=== PATIENT | male | born 1990 | race Caucasian/White ===

== ENCOUNTER 2016-10-03 18:44 | Emergency (ER) | payer OTHER ==
--- NOTE | 2016-10-03 19:45 | ED NURSING NOTES ---
Clinical Report - Nurses [facility] [address] [place] [address] 10/03/2016 18:45 [id number] Triage time 18:48. Acuity: LEVEL 4. Chief Complaint: INJURY TO RIGHT HAND. INJURY TO THE RIGHT MIDDLE FINGER. 18:49 10/03/16. 18:49 10/03/16. Alert. ABEBA COMA SCORE: [place] Coma Scale: 15- eyes open spontaneously (4); best verbal response- oriented x 4 (5); best motor response- obeys commands (6). --18:54 Gautam Goldstein R.N. 18:48 10/03/16. BP: 129/67. HR: 60. RR: 20. O2 saturation: 99% on room air. Temp: 97.8 F (oral). Pain level now: 01/30. --18:54 Gautam Goldstein R.N. Weight: 86.1 kg stated. Height/Length: 71 inches Per Patient. BMI: 26.5. --18:51 Gautam Goldstein R.N. Medications None. --18:51 Gautam Goldstein R.N. Medication/allergy information source: the patient. --18:54 Gautam Goldstein R.N. Allergies None. --18:51 Gautam Goldstein R.N. History Arrived by private vehicle. 18:49 10/03/16. This occurred just prior to arrival. Occurred at work. Treatment DISHWASHER: None. PAST MEDICAL HX: Tetanus status: up-to-date. Immunizations: up-to-date. SOCIAL HX: Never smoker. Occasional alcohol use. No drug use. No infectious disease exposure. ABUSE ASSESSMENT: No report of abuse. FALL RISK ASSESSMENT: Fall risk assessment completed. No fall risk identified. NUTRITIONAL RISK ASSESSMENT: The nutritional risk assessment revealed no deficiencies. FUNCTIONAL ASSESSMENT: Functional assessment: no impairments noted. LEARNING NEEDS ASSESSMENT: The learning needs assessment revealed no barriers. SKIN INTEGRITY ASSESSMENT: Skin integrity risk assessment completed. No skin integrity risk identified. --18:54 Gautam Goldstein R.N. PROBLEMS: Spontaneous pneumothorax. --18:52 Gautam Goldstein R.N. ADDITIONAL SURGERIES: Chest Tube. Hernia Repair. --18:52 Gautam Goldstein R.N. Assessment 18:49 10/03/16. --18:54 Gautam Goldstein R.N. Interventions 18:49 10/03/16. 18:49 10/03/16. ID and allergy band on patient. To treatment room. --18:54 Gautam Goldstein R.N. PHYSICAL ASSESSMENT 18:52 10/03/16. Ambulatory to room. GENERAL / NEURO / PSYCH: Oriented X 4. Alert. Appears in pain. EXTREMITIES: Right hand: deformity (right middle finger). SKIN: Skin is warm and dry. --18:52 Gautam Goldstein R.N. NURSING PROGRESS NOTES 18:52 10/03/16. The plan of care for this patient has been created. Extremity elevated. Neuro-vascular extremity check. Reassurance given. Two patient identifiers checked. Call light placed in reach. Side rails up x 2. Bed placed in lowest position. Brakes of bed on. --18:52 Gautam Goldstein R.N. 19:18 10/03/2016 Lidocaine Injection Injectable 1 % given. Allergies verified and confirmed 5 rights. (placed on finger by CORPORATE SECRETARY). --19:33 Lucy Connolly R.N. 19:18 10/03/2016 Bupivacaine Injection Injectable 0.5 % given. Allergies verified and confirmed 5 rights. (given by CORPORATE SECRETARY Dylan for site). --19:33 Lucy Connolly R.N. 19:40 10/03/2016 Ceftriaxone IM 1 gm given. Given in the left ventral gluteus. Allergies verified and confirmed 5 rights. --19:40 Natasha Victoria R.N. Applied clean dressing consisting of antibiotic impregnated gauze. Secured with tube gauze. Finger splint applied to right middle finger. Distal pulses intact, sensation intact and motor within normal limits (4 prong finger splint secured with tube gauze.). --20:06 Zamzam Schneider 20:17 10/03/2016 Ceftriaxone IM Response: no adverse reaction. --20:27 Lucy Connolly R.N. 20:17 10/03/2016 Lidocaine Injection Response: no adverse reaction. --20:27 Lucy Connolly R.N. 20:17 10/03/2016 Bupivacaine Injection Response: no adverse reaction. --20:27 Lucy Connolly R.N. DISPOSITION / DISCHARGE Condition at departure: improved and stable. The goals identified in the patient's plan of care were met. No learning barriers present. Discharge instructions provided and reviewed with the patient. Reviewed warnings. Reviewed medication(s) side effects, precautions, dosing and course information. Reviewed wound care instructions. Reviewed referral to an orthopedic surgeon. Patient verbalized understanding. Written instructions provided in Greenlandic. The patient was discharged by the nurse practitioner. He was discharged home and accompanied by family. He left the Emergency Department ambulatory and via private vehicle. Family member driving. FALL RISK ASSESSMENT: Fall risk assessment completed. No fall risk identified. --20:20 Lucy Connolly R.N. 20:16 10/03/16. BP: 112/56. HR: 59. RR: 16. O2 saturation: 100%. Temp: 98.4 F. Pain level now: 05/02. --20:20 Lucy Connolly R.N. Departure time: 2019 PM. --20:20 Lucy Connolly R.N. ( explicit explanation given as to work duties, wound care. All concerns addressed to pt's satisfaction). --20:27 Lucy Connolly R.N. Locked/Released at 10/03/2016 20:27 by Lucy Connolly R.N.
--- NOTE | 2016-10-03 19:45 | ED CLINICAL REPORT ---
Clinical Report - Physicians/Mid Levels [facility] [address] [place] [address] 10/03/2016 18:45 Patient: SANDIP BELLO Time Seen: 18:55; initial patient contact, initial documentation, patient care assumed. Arrived- By private vehicle. Historian- patient. HISTORY OF PRESENT ILLNESS Chief Complaint: Injury to the right middle finger. The injury happened just prior to arrival. Occurred at work. The patient sustained a crush injury (got tip of finger stuck between metal and caulking gun). Patient is experiencing severe pain. Patient denies injury to the head or neck. No other injury. REVIEW OF SYSTEMS The patient sustained a laceration. He has had swelling. No tingling, numbness, weakness or foreign body. All systems otherwise negative, except as recorded above. PAST HISTORY See nurses notes. PROBLEMS: Spontaneous pneumothorax. --18:52 Gautam Goldstein R.N. ADDITIONAL SURGERIES: Chest Tube. Hernia Repair. --18:52 Gautam Goldstein R.N. The patient's dominant hand is the right. Tetanus immunization status is up-to-date. SOCIAL HISTORY Never smoker. Occasional alcohol use. No drug use. No recent travel. Is a local resident. FAMILY HISTORY No significant family medical history. ADDITIONAL NOTES The nursing notes have been reviewed with agreement regarding the chief complaint, HPI, ROS, PMH and patient medications and allergies. PHYSICAL EXAM Vital Signs: 10/03/2016 18:48 BP: 129/67. HR: 60. RR: 20. O2 saturation: 99%. Temp: 97.8 F. Pain level now: 10/10. Have been reviewed as normal and appear to be correct. Appearance: Alert. Oriented X3. No acute distress. Head: Head atraumatic. Eyes: Pupils equal, round and reactive to light. Eyes normal inspection. Respiratory: No respiratory distress. Skin: Skin warm and dry. Skin intact. Extremities: Hand injury present. Tip of right middle finger: moderate tenderness, mild swelling and subcutaneous 1.0 cm laceration; large subungual hematoma present. SEE LACERATION PROCEDURE NOTE #1. No erythema, puncture wound or foreign body. No nail avulsion, exposed bone or loss of the nail bed on the right middle finger or tip amputation of the right middle finger. No wrist injury. Hand and wrist exam otherwise negative. Extremities otherwise negative. Neuro, Vascular and Tendons: Vascular status intact. Sensation intact. Motor intact. Tendon function intact. Neuro: Oriented X 3. No motor deficit. No sensory deficit. Note: isolated injury to finger. LABS, X-RAYS, AND EKG X-Rays: Right digit(s). Rt UE Digits X-ray: Digit fracture of the right upper extremity. Fracture of the distal phalanx, middle finger. (transverse fx). No open, comminuted, intraarticular or angulated fracture of the right middle finger. The X-rays were independently viewed by me. PROGRESS AND PROCEDURES Laceration Repair: Location: right middle finger. Length: 1 cm. Complexity: simple (local anesthesia used). Wound depth/shape- linear and involving fascia. Wound is clean. No contamination or foreign body present. Contused tissue present. No tissue loss. Distal neuro/vascular/tendon status normal. Tendon not examined. No tendon deficit or laceration or tendon injury. Anesthesia provided by digital block using 1% lidocaine and 0.50% Marcaine (2 mL). Prepped with Betadine. Wound explored, cleansed, irrigated and examined to the base in bloodless field with normal saline. Wound not debrided. No foreign material removed. Closure of skin: interrupted 4-0 nylon (2 sutures). Post-procedure: he is stable and there are no complications. Bleeding is controlled and neuro-vascular status is intact distal to the wound. Clean dressing applied. (per nurse, see other notes). Tetanus immunization up-to-date. Estimated blood loss: 1 mL. Course of Care: 19:58 10/03/16. L&I paperwork completed. Patient and family counseled in person regarding the patient's stable condition, test results and diagnosis. Differential Diagnosis: Other possible considerations: crush injury, lac, fx, subungual hematoma. Above considerations are based on history, physical exam, reassessment and X-Ray data. Differential diagnosis was discussed with patient and patient's family. Disposition: Discharged home in good and improved condition (19:45). Condition: good and stable. CLINICAL IMPRESSION Crush injury to the right middle finger. Open nondisplaced distal phalanx fracture of the right middle finger. No angulated fracture of the phalanx. Single deep laceration to the right middle finger.Treatment of laceration not delayed. No infection or foreign body present. Subungual hematoma of the right third toe. No damage to the nail, foreign body present or laceration present. INSTRUCTIONS Apply ice for 20 minutes four times a day for two days until better. Don't apply ice directly to skin. Elevate affected areas above chest level for two days until better. Wear aluminum splint until released. Protect wound and keep wound area clean. Soak in warm soapy water twice daily. Apply neosporin twice daily. Sutures should be removed in ten days. Limit use of your right hand until better (limited use of Right hand until cleared by orthopedic or follow up physician). Do not work today, tomorrow. Warnings: GENERAL WARNINGS: Return or contact your physician immediately if your condition worsens or changes unexpectedly, if not improving as expected, or if other problems arise. Specifically return if problem worsens. Prescription Medications: Zofran 4 mg: Take 1 orally every six hours as needed for nausea/vomiting. Dispense ten (10). No refills. Substitution is permissible. Cephalexin 500 mg: take 1 capsule orally every 8 hours for 10 days. No refill. [place] 5 mg / 325 mg tablets: take 1 to 2 orally every 6 hours as needed for pain. Dispense fifteen (15). No refills. Substitution is permissible. Motrin 800 mg tablets: take 1 tablet orally every 8 hours as needed for pain. Dispense thirty (30). No refills. Substitution is permissible. Follow-up: Follow up with your doctor in about three days even if well and for wound check. Call for an appointment. Summary of care provided to patient. Understanding of the discharge instructions verbalized by patient. Follow-up with: [facility], , [address] [place], [address]; Peng Castillo M.D., [place], , [address] , [place], [address]; Guicho Polo M.D., [place], , [address], , [place], [address]; Tripp Nunez MD, Orthopedic Surgeon, , [address], , [place], [address]; Kamron Cordoba MD, Orthopedic Surgeon, , [address] , [place], [address] Follow up in about three days even if well. Call for an appointment. Summary of care provided to patient. (Electronically signed by Destinee Galicia A.R.N.P. 10/03/2016 21:37)
--- NOTE | 2016-10-03 19:45 | ED NURSING NOTES ---
Clinical Report - Nurses [facility] [address] [place] [address] 10/03/2016 18:45 [id number] Triage time 18:48. Acuity: LEVEL 4. Chief Complaint: INJURY TO RIGHT HAND. INJURY TO THE RIGHT MIDDLE FINGER. 18:49 10/03/16. 18:49 10/03/16. Alert. ABEBA COMA SCORE: [place] Coma Scale: 15- eyes open spontaneously (4); best verbal response- oriented x 4 (5); best motor response- obeys commands (6). --18:54 Gautam Goldstein R.N. 18:48 10/03/16. BP: 129/67. HR: 60. RR: 20. O2 saturation: 99% on room air. Temp: 97.8 F (oral). Pain level now: 01/30. --18:54 Gautam Goldstein R.N. Weight: 86.1 kg stated. Height/Length: 71 inches Per Patient. BMI: 26.5. --18:51 Gautam Goldstein R.N. Medications None. --18:51 Gautam Goldstein R.N. Medication/allergy information source: the patient. --18:54 Gautam Goldstein R.N. Allergies None. --18:51 Gautam Goldstein R.N. History Arrived by private vehicle. 18:49 10/03/16. This occurred just prior to arrival. Occurred at work. Treatment DOCTOR OF NURSE ANESTHESIA PRACTICE: None. PAST MEDICAL HX: Tetanus status: up-to-date. Immunizations: up-to-date. SOCIAL HX: Never smoker. Occasional alcohol use. No drug use. No infectious disease exposure. ABUSE ASSESSMENT: No report of abuse. FALL RISK ASSESSMENT: Fall risk assessment completed. No fall risk identified. NUTRITIONAL RISK ASSESSMENT: The nutritional risk assessment revealed no deficiencies. FUNCTIONAL ASSESSMENT: Functional assessment: no impairments noted. LEARNING NEEDS ASSESSMENT: The learning needs assessment revealed no barriers. SKIN INTEGRITY ASSESSMENT: Skin integrity risk assessment completed. No skin integrity risk identified. --18:54 Gautam Goldstein R.N. PROBLEMS: Spontaneous pneumothorax. --18:52 Gautam Goldstein R.N. ADDITIONAL SURGERIES: Chest Tube. Hernia Repair. --18:52 Gautam Goldstein R.N. Assessment 18:49 10/03/16. --18:54 Gautam Goldstein R.N. Interventions 18:49 10/03/16. 18:49 10/03/16. ID and allergy band on patient. To treatment room. --18:54 Gautam Goldstein R.N. PHYSICAL ASSESSMENT 18:52 10/03/16. Ambulatory to room. GENERAL / NEURO / PSYCH: Oriented X 4. Alert. Appears in pain. EXTREMITIES: Right hand: deformity (right middle finger). SKIN: Skin is warm and dry. --18:52 Gautam Goldstein R.N. NURSING PROGRESS NOTES 18:52 10/03/16. The plan of care for this patient has been created. Extremity elevated. Neuro-vascular extremity check. Reassurance given. Two patient identifiers checked. Call light placed in reach. Side rails up x 2. Bed placed in lowest position. Brakes of bed on. --18:52 Gautam Goldstein R.N. 19:18 10/03/2016 Lidocaine Injection Injectable 1 % given. Allergies verified and confirmed 5 rights. (placed on finger by LIBRARY SALES CONSULTANT). --19:33 Lucy Connolly R.N. 19:18 10/03/2016 Bupivacaine Injection Injectable 0.5 % given. Allergies verified and confirmed 5 rights. (given by LIBRARY SALES CONSULTANT Dylan for site). --19:33 Lucy Connolly R.N. 19:40 10/03/2016 Ceftriaxone IM 1 gm given. Given in the left ventral gluteus. Allergies verified and confirmed 5 rights. --19:40 Natasha Victoria R.N. Applied clean dressing consisting of antibiotic impregnated gauze. Secured with tube gauze. Finger splint applied to right middle finger. Distal pulses intact, sensation intact and motor within normal limits (4 prong finger splint secured with tube gauze.). --20:06 Zamzam Schneider 20:17 10/03/2016 Ceftriaxone IM Response: no adverse reaction. --20:27 Lucy Connolly R.N. 20:17 10/03/2016 Lidocaine Injection Response: no adverse reaction. --20:27 Lucy Connolly R.N. 20:17 10/03/2016 Bupivacaine Injection Response: no adverse reaction. --20:27 Lucy Connolly R.N. DISPOSITION / DISCHARGE Condition at departure: improved and stable. The goals identified in the patient's plan of care were met. No learning barriers present. Discharge instructions provided and reviewed with the patient. Reviewed warnings. Reviewed medication(s) side effects, precautions, dosing and course information. Reviewed wound care instructions. Reviewed referral to an orthopedic surgeon. Patient verbalized understanding. Written instructions provided in Spanish. The patient was discharged by the nurse practitioner. He was discharged home and accompanied by family. He left the Emergency Department ambulatory and via private vehicle. Family member driving. FALL RISK ASSESSMENT: Fall risk assessment completed. No fall risk identified. --20:20 Lucy Connolly R.N. 20:16 10/03/16. BP: 112/56. HR: 59. RR: 16. O2 saturation: 100%. Temp: 98.4 F. Pain level now: 05/02. --20:20 Lucy Connolly R.N. Departure time: 2019 PM. --20:20 Lucy Connolly R.N. ( explicit explanation given as to work duties, wound care. All concerns addressed to pt's satisfaction). --20:27 Lucy Connolly R.N. Locked/Released at 10/03/2016 20:27 by Lucy Connolly R.N.
--- NOTE | 2016-10-03 19:45 | ED ORDER SUMMARY ---
..... Patient: SANDIP BELLO OrderSheet [facility] VisitID: [id number] [address] [place] [address] 25y, M Registration Date/Time: 10/03/2016 ORDER SHEET Weight: 86.1 kg (stated) Allergies: None GENERAL ORDERS: Hand 2V Right Urgent (18:48 10/03/2016 JBoardley R.N. per protocol) (Cancelled: Other18:52 JBoardley R.N.) (Ack 18:53 LNations ER Tech1) Hand 3 or 4V Right Urgent (18:53 10/03/2016 JBoardley R.N. per protocol) (Ack 18:53 LNations ER Tech1) (19:32 EHassan R.N.) Splint (Finger) (Right) (Middle) (4 prong ) (19:21 10/03/2016 HBivens A.R.N.P.) (19:46 EHassan R.N.) Suture Set-up: (19:21 10/03/2016 HBivens A.R.N.P.) (19:32 EHassan R.N.) Dress Wounds (19:21 10/03/2016 HBivens A.R.N.P.) (19:46 EHassan R.N.) MEDICATION ORDERS: Ceftriaxone IM 1 gm (NOW) (19:20 10/03/2016 HBivens A.R.N.P.) (Ack 19:26 JSanders R.N.) (19:40 JSanders R.N.) Bupivacaine Injection 0.5 % (soln) (NOW) (19:20 10/03/2016 HBivens A.R.N.P.) (Ack 19:26 JSanders R.N.) (19:33 EHassan R.N.) Lidocaine Injection 1% plain (NOW) (19:20 10/03/2016 HBivens A.R.N.P.) (Ack 19:26 JSanders R.N.) (19:33 EHassan R.N.) IV FLUIDS: ORDER SHEET NOTES: [Electronically signed by Lucy Connolly R.N. (10/03/2016)] [Electronically signed by Destinee Galicia (:37 10/03/2016)] [Electronically locked/signed by Lucy Connolly R.N. (10/03/2016)]
--- NOTE | 2016-10-03 19:45 | ED ORDER SUMMARY ---
..... Patient: SANDIP BELLO OrderSheet [facility] VisitID: [id number] [address] [place] [address] 25y, M Registration Date/Time: 10/03/2016 ORDER SHEET Weight: 86.1 kg (stated) Allergies: None GENERAL ORDERS: Hand 2V Right Urgent (18:48 10/03/2016 JBoardley R.N. per protocol) (Cancelled: Other18:52 JBoardley R.N.) (Ack 18:53 LNations ER Tech1) Hand 3 or 4V Right Urgent (18:53 10/03/2016 JBoardley R.N. per protocol) (Ack 18:53 LNations ER Tech1) (19:32 EHassan R.N.) Splint (Finger) (Right) (Middle) (4 prong ) (19:21 10/03/2016 HBivens A.R.N.P.) (19:46 EHassan R.N.) Suture Set-up: (19:21 10/03/2016 HBivens A.R.N.P.) (19:32 EHassan R.N.) Dress Wounds (19:21 10/03/2016 HBivens A.R.N.P.) (19:46 EHassan R.N.) MEDICATION ORDERS: Ceftriaxone IM 1 gm (NOW) (19:20 10/03/2016 HBivens A.R.N.P.) (Ack 19:26 JSanders R.N.) (19:40 JSanders R.N.) Bupivacaine Injection 0.5 % (soln) (NOW) (19:20 10/03/2016 HBivens A.R.N.P.) (Ack 19:26 JSanders R.N.) (19:33 EHassan R.N.) Lidocaine Injection 1% plain (NOW) (19:20 10/03/2016 HBivens A.R.N.P.) (Ack 19:26 JSanders R.N.) (19:33 EHassan R.N.) IV FLUIDS: ORDER SHEET NOTES: [Electronically signed by Lucy Connolly R.N. (10/03/2016)] [Electronically signed by Destinee Galicia (:37 10/03/2016)] [Electronically locked/signed by Lucy Connolly R.N. (10/03/2016)]
--- NOTE | 2016-10-03 19:45 | ED CLINICAL REPORT ---
Clinical Report - Physicians/Mid Levels [facility] [address] [place] [address] 10/03/2016 18:45 Patient: SANDIP BELLO Time Seen: 18:55; initial patient contact, initial documentation, patient care assumed. Arrived- By private vehicle. Historian- patient. HISTORY OF PRESENT ILLNESS Chief Complaint: Injury to the right middle finger. The injury happened just prior to arrival. Occurred at work. The patient sustained a crush injury (got tip of finger stuck between metal and caulking gun). Patient is experiencing severe pain. Patient denies injury to the head or neck. No other injury. REVIEW OF SYSTEMS The patient sustained a laceration. He has had swelling. No tingling, numbness, weakness or foreign body. All systems otherwise negative, except as recorded above. PAST HISTORY See nurses notes. PROBLEMS: Spontaneous pneumothorax. --18:52 Gautam Goldstein R.N. ADDITIONAL SURGERIES: Chest Tube. Hernia Repair. --18:52 Gautam Goldstein R.N. The patient's dominant hand is the right. Tetanus immunization status is up-to-date. SOCIAL HISTORY Never smoker. Occasional alcohol use. No drug use. No recent travel. Is a local resident. FAMILY HISTORY No significant family medical history. ADDITIONAL NOTES The nursing notes have been reviewed with agreement regarding the chief complaint, HPI, ROS, PMH and patient medications and allergies. PHYSICAL EXAM Vital Signs: 10/03/2016 18:48 BP: 129/67. HR: 60. RR: 20. O2 saturation: 99%. Temp: 97.8 F. Pain level now: 10/10. Have been reviewed as normal and appear to be correct. Appearance: Alert. Oriented X3. No acute distress. Head: Head atraumatic. Eyes: Pupils equal, round and reactive to light. Eyes normal inspection. Respiratory: No respiratory distress. Skin: Skin warm and dry. Skin intact. Extremities: Hand injury present. Tip of right middle finger: moderate tenderness, mild swelling and subcutaneous 1.0 cm laceration; large subungual hematoma present. SEE LACERATION PROCEDURE NOTE #1. No erythema, puncture wound or foreign body. No nail avulsion, exposed bone or loss of the nail bed on the right middle finger or tip amputation of the right middle finger. No wrist injury. Hand and wrist exam otherwise negative. Extremities otherwise negative. Neuro, Vascular and Tendons: Vascular status intact. Sensation intact. Motor intact. Tendon function intact. Neuro: Oriented X 3. No motor deficit. No sensory deficit. Note: isolated injury to finger. LABS, X-RAYS, AND EKG X-Rays: Right digit(s). Rt UE Digits X-ray: Digit fracture of the right upper extremity. Fracture of the distal phalanx, middle finger. (transverse fx). No open, comminuted, intraarticular or angulated fracture of the right middle finger. The X-rays were independently viewed by me. PROGRESS AND PROCEDURES Laceration Repair: Location: right middle finger. Length: 1 cm. Complexity: simple (local anesthesia used). Wound depth/shape- linear and involving fascia. Wound is clean. No contamination or foreign body present. Contused tissue present. No tissue loss. Distal neuro/vascular/tendon status normal. Tendon not examined. No tendon deficit or laceration or tendon injury. Anesthesia provided by digital block using 1% lidocaine and 0.50% Marcaine (2 mL). Prepped with Betadine. Wound explored, cleansed, irrigated and examined to the base in bloodless field with normal saline. Wound not debrided. No foreign material removed. Closure of skin: interrupted 4-0 nylon (2 sutures). Post-procedure: he is stable and there are no complications. Bleeding is controlled and neuro-vascular status is intact distal to the wound. Clean dressing applied. (per nurse, see other notes). Tetanus immunization up-to-date. Estimated blood loss: 1 mL. Course of Care: 19:58 10/03/16. L&I paperwork completed. Patient and family counseled in person regarding the patient's stable condition, test results and diagnosis. Differential Diagnosis: Other possible considerations: crush injury, lac, fx, subungual hematoma. Above considerations are based on history, physical exam, reassessment and X-Ray data. Differential diagnosis was discussed with patient and patient's family. Disposition: Discharged home in good and improved condition (19:45). Condition: good and stable. CLINICAL IMPRESSION Crush injury to the right middle finger. Open nondisplaced distal phalanx fracture of the right middle finger. No angulated fracture of the phalanx. Single deep laceration to the right middle finger.Treatment of laceration not delayed. No infection or foreign body present. Subungual hematoma of the right third toe. No damage to the nail, foreign body present or laceration present. INSTRUCTIONS Apply ice for 20 minutes four times a day for two days until better. Don't apply ice directly to skin. Elevate affected areas above chest level for two days until better. Wear aluminum splint until released. Protect wound and keep wound area clean. Soak in warm soapy water twice daily. Apply neosporin twice daily. Sutures should be removed in ten days. Limit use of your right hand until better (limited use of Right hand until cleared by orthopedic or follow up physician). Do not work today, tomorrow. Warnings: GENERAL WARNINGS: Return or contact your physician immediately if your condition worsens or changes unexpectedly, if not improving as expected, or if other problems arise. Specifically return if problem worsens. Prescription Medications: Zofran 4 mg: Take 1 orally every six hours as needed for nausea/vomiting. Dispense ten (10). No refills. Substitution is permissible. Cephalexin 500 mg: take 1 capsule orally every 8 hours for 10 days. No refill. [place] 5 mg / 325 mg tablets: take 1 to 2 orally every 6 hours as needed for pain. Dispense fifteen (15). No refills. Substitution is permissible. Motrin 800 mg tablets: take 1 tablet orally every 8 hours as needed for pain. Dispense thirty (30). No refills. Substitution is permissible. Follow-up: Follow up with your doctor in about three days even if well and for wound check. Call for an appointment. Summary of care provided to patient. Understanding of the discharge instructions verbalized by patient. Follow-up with: [facility], , [address] [place], [address]; Peng Castillo M.D., [place], , [address] , [place], [address]; Guicho Polo M.D., [place], , [address], , [place], [address]; Tripp Nunez MD, Orthopedic Surgeon, , [address], , [place], [address]; Kamron Cordoba MD, Orthopedic Surgeon, , [address] , [place], [address] Follow up in about three days even if well. Call for an appointment. Summary of care provided to patient. (Electronically signed by Destinee Galicia A.R.N.P. 10/03/2016 21:37)
--- NOTE | 2016-10-03 20:19 | DIAGNOSTIC IMAGING REPORT ---
PROCEDURE: XR HAND 3 OR 4 VIEWS - RIGHT INDICATION: TRAUMA/INJURY TECHNIQUE: Four views of the right hand. COMPARISON: None. FINDINGS: Normal mineralization. Minimally comminuted, minimally displaced transverse fracture across the distal phalanx just proximal to the tuft. Moderate soft tissue swelling. No radiodense foreign body. No dislocation or other fractures. IMPRESSION: 1. Third distal phalanx fracture. 2. No underlying foreign body. 3. If there is nailbed disruption, treat as open fracture.
--- NOTE | 2016-10-03 21:38 | ED MED RECONCILIATION SUMMARY ---
Patient: SANDIP BELLO Medication Reconciliation Report [facility] VisitID: [id number] [address] [place] [address] 25y, M Registration Date/Time: 10/03/2016 Weight: 86.1 kg Height/Length: 71 in. BMI: 26.5 ALLERGIES: None The patient's Home Medications are listed below: NONE. The source(s) of the original Home Medication information: patient The following Medications were given to the patient in the Emergency Department: Lidocaine [Injection] Injection 1 %, administered: 10/03/2016 7:18:00 PM Bupivacaine [Injection] Injection 0.5 %, administered: 10/03/2016 7:18:00 PM Ceftriaxone [IM] IM 1 gm, administered: 10/03/2016 7:40:00 PM The following Medications were prescribed to the patient: Zofran 4 mg: Take 1 orally every six hours as needed for nausea/vomiting. Dispense ten (10). No refills. Substitution is permissible. -- Destinee Galicia, A.R.N.P. Cephalexin 500 mg: take 1 capsule orally every 8 hours for 10 days. No refill. -- Destinee Galicia, A.R.N.P. [place] 5 mg / 325 mg tablets: take 1 to 2 orally every 6 hours as needed for pain. Dispense fifteen (15). No refills. Substitution is permissible. -- Destinee Galicia, A.R.N.P. Motrin 800 mg tablets: take 1 tablet orally every 8 hours as needed for pain. Dispense thirty (30). No refills. Substitution is permissible. -- Destinee Galicia, A.R.N.P.
--- NOTE | 2016-10-03 21:38 | ED MAR SUMMARY ---
..... Medication Administration Record [facility] [address] [place] [address] Patient: SANDIP BELLO Visit ID: [id number] 25y, M Weight: 86.1 kg Height/Length: 71 in BMI: 26.5 ALLERGIES: None Given 19:18 10/03/2016 Lucy Connolly RMarekNMarek Medication Administered: BUPIVACAINE [INJECTION], Dose: 0.5 % Injectable Injection. Medication Ordered: Bupivacaine Injection 0.5 % (soln) (NOW). Given 19:18 10/03/2016 Lucy Connolly RMarekNMarek Medication Administered: LIDOCAINE [INJECTION], Dose: 1 % Injectable Injection. Medication Ordered: Lidocaine Injection 1% plain (NOW). Given 19:40 10/03/2016 Natasha Victoria R.N. Medication Administered: CEFTRIAXONE [IM], Dose: 1 gm IM. Medication Ordered: Ceftriaxone IM 1 gm (NOW).
--- NOTE | 2016-10-03 21:38 | ED MAR SUMMARY ---
..... Medication Administration Record [facility] [address] [place] [address] Patient: SANDIP BELLO Visit ID: [id number] 25y, M Weight: 86.1 kg Height/Length: 71 in BMI: 26.5 ALLERGIES: None Given 19:18 10/03/2016 Lucy Connolly RMarekNMarek Medication Administered: BUPIVACAINE [INJECTION], Dose: 0.5 % Injectable Injection. Medication Ordered: Bupivacaine Injection 0.5 % (soln) (NOW). Given 19:18 10/03/2016 Lucy Connolly RMarekNMarek Medication Administered: LIDOCAINE [INJECTION], Dose: 1 % Injectable Injection. Medication Ordered: Lidocaine Injection 1% plain (NOW). Given 19:40 10/03/2016 Natasha Victoria R.N. Medication Administered: CEFTRIAXONE [IM], Dose: 1 gm IM. Medication Ordered: Ceftriaxone IM 1 gm (NOW).
--- NOTE | 2016-10-03 21:38 | ED MED RECONCILIATION SUMMARY ---
Patient: SANDIP BELLO Medication Reconciliation Report [facility] VisitID: [id number] [address] [place] [address] 25y, M Registration Date/Time: 10/03/2016 Weight: 86.1 kg Height/Length: 71 in. BMI: 26.5 ALLERGIES: None The patient's Home Medications are listed below: NONE. The source(s) of the original Home Medication information: patient The following Medications were given to the patient in the Emergency Department: Lidocaine [Injection] Injection 1 %, administered: 10/03/2016 7:18:00 PM Bupivacaine [Injection] Injection 0.5 %, administered: 10/03/2016 7:18:00 PM Ceftriaxone [IM] IM 1 gm, administered: 10/03/2016 7:40:00 PM The following Medications were prescribed to the patient: Zofran 4 mg: Take 1 orally every six hours as needed for nausea/vomiting. Dispense ten (10). No refills. Substitution is permissible. -- Destinee Galicia, A.R.N.P. Cephalexin 500 mg: take 1 capsule orally every 8 hours for 10 days. No refill. -- Destinee Galicia, A.R.N.P. [place] 5 mg / 325 mg tablets: take 1 to 2 orally every 6 hours as needed for pain. Dispense fifteen (15). No refills. Substitution is permissible. -- Destinee Galicia, A.R.N.P. Motrin 800 mg tablets: take 1 tablet orally every 8 hours as needed for pain. Dispense thirty (30). No refills. Substitution is permissible. -- Destinee Galicia, A.R.N.P.
--- NOTE | 2016-10-03 21:38 | ED DISCHARGE INSTRUCTIONS ---
Patient: SANDIP BELLO General Instructions [facility] VisitID: [id number] [address] [place] [address] 25y, M Registration Date/Time: 10/03/2016 Crush injury to the right middle finger. Open nondisplaced distal phalanx fracture of the right middle finger. No angulated fracture of the phalanx. Single deep laceration to the right middle finger.Treatment of laceration not delayed. No infection or foreign body present. Subungual hematoma of the right third toe. No damage to the nail, foreign body present or laceration present. INSTRUCTIONS Apply ice for 20 minutes four times a day for two days until better. Don't apply ice directly to skin. Elevate affected areas above chest level for two days until better. Wear aluminum splint until released. Protect wound and keep wound area clean. Soak in warm soapy water twice daily. Apply neosporin twice daily. Sutures should be removed in ten days. Limit use of your right hand until better (limited use of Right hand until cleared by orthopedic or follow up physician). Do not work today, tomorrow. Warnings: GENERAL WARNINGS: Return or contact your physician immediately if your condition worsens or changes unexpectedly, if not improving as expected, or if other problems arise. Specifically return if problem worsens. Prescription Medications: Zofran 4 mg: Take 1 orally every six hours as needed for nausea/vomiting. Dispense ten (10). No refills. Substitution is permissible. Cephalexin 500 mg: take 1 capsule orally every 8 hours for 10 days. No refill. [place] 5 mg / 325 mg tablets: take 1 to 2 orally every 6 hours as needed for pain. Dispense fifteen (15). No refills. Substitution is permissible. Motrin 800 mg tablets: take 1 tablet orally every 8 hours as needed for pain. Dispense thirty (30). No refills. Substitution is permissible. Follow-up: Follow up with your doctor in about three days even if well and for wound check. Call for an appointment. Summary of care provided to patient. Understanding of the discharge instructions verbalized by patient. Follow-up with: [facility], , [address], [place], [address]; Peng Castillo M.D., Ortho, , [address], , [place], [address]; Guicho Polo M.D., Ortho, , [address], , [place], [address]; Tripp Nunez MD, Orthopedic Surgeon, , [id number], , [place], [address]; Kamron Cordoba MD, Orthopedic Surgeon, , [address] , [place], [address] Follow up in about three days even if well. Call for an appointment. Summary of care provided to patient. ADDITIONAL INFORMATION Laceration (All Closures) Alaceration is a cut through the skin. This will usually require stitches (sutures) or samson if it is deep. Minor cuts may be treated with a surgical tape closure orskin glue. Home care The following guidelines will help you care for your laceration at home: Extremity, face, or trunk wounds Keep the wound clean and dry. If a bandage was applied and it becomes wet or dirty, replace it. Otherwise, leave it in place for the first 24 hours. If stitches or samson were used, clean the wound daily. After removing the bandage, wash the area with soap and water. Use a wet cotton swab to loosen and remove any blood or crust that forms. The doctor may prescribe an antibiotic cream or ointment to prevent infection. Do not stop taking this medication until you have finished the prescribed course or the doctor tells you to stop. The doctor may also prescribe medications for pain. Follow the doctors instructions for taking these medications. You may remove the bandage to shower as usual after the first 24 hours, but do not soak the area in water (no swimming) until the stitches or samson are removed. If surgical tape was used, keep the area clean and dry. If it becomes wet, blot it dry with a towel. If skin glue was used, do not scratch, rub, or pick at the adhesive film. Do not place tape directly over the film. Do not apply liquid, ointment, or creams to the wound while the film is in place. Do not clean the wound with peroxide and do not apply ointments. Avoid activities that cause heavy sweating until the film has fallen off. Protect the wound from prolonged exposure to sunlight or tanning lamps. You may shower as usual but do not soak the wound in water (no baths or swimming). The film will fall off by itself in 510 days. Scalp wounds During the first two days, you may carefully rinse your hair in the shower to remove blood, glass or dirt particles. After two days, you may shower and shampoo your hair normally. Do not soak your scalp in the tub or go swimming until the stitches or samson have been removed. Talk with your doctor before applying any antibiotic ointment to the wound. Mouth wounds Eat soft foods to reduce pain. If the cut is inside of your mouth, clean by rinsing after each meal and at bedtime with a mixture of equal parts water and hydrogen peroxide (do not swallow!). Or, you can use a cotton swab to directly apply hydrogen peroxide onto the cut. Mouth wounds can be painful when eating. You may use an [id number] local numbing solution for pain relief. If this is not available, you may use any numbing solution for teething babies. You may apply this directly to the sores with a cotton-tip swab or with your finger. Follow-up care Follow up with your health care provider. Most skin wounds heal within ten days. Mouth and facial wounds heal within five days. However, even with proper treatment, a wound infection may sometimes occur. Therefore, you should check the wound daily for signs of infection listed below. Stitches should be removed from the face within five days; stitches and samson should be removed from other parts of the body within 714 days. If dissolving stitches were used in the mouth, these will fall out or dissolve without the need for removal. If tape closures were used, remove them yourself if they have not fallen off after 7 days. Ifskin glue was used, the film will fall off by itself in 510 days. When to seek medical care Get prompt medical attention if any of these occur: Bleeding not controlled by direct pressure Signs of infection, including increasing pain in the wound, increasing wound redness or swelling, or pus coming from the wound Fever of 100.4F (38C) or higher, or as directed by your health care provider Stitches or samson come apart or fall out or surgical tape falls off before 7 days Wound edges re-open Laceration, Extremity (Sutures, [place], Or Tape) A laceration is a cut through the skin. This will usually require stitches (sutures) or samson if it is deep. Minor cuts may be treated with surgical tape closures. Home care The following guidelines will help you care for your laceration at home: Keep the wound clean and dry. If a bandage was applied and it becomes wet or dirty, replace it. Otherwise, leave it in place for the first 24 hours, then change it once a day or as directed. If stitches or samson were used, clean the wound daily: After removing the bandage, wash the area with soap and water. Use a wet cotton swab to loosen and remove any blood or crust that forms. After cleaning, keep the wound clean and dry. Talk with your doctor before applying any antibiotic ointment to the wound. Reapply the bandage. You may remove the bandage to shower as usual after the first 24 hours, but do not soak the area in water (no swimming) until the stitches or samson are removed. If surgical tape closures were used, keep the area clean and dry. If it becomes wet, blot it dry with a towel. The doctor may prescribe an antibiotic cream or ointment to prevent infection. Do not stop taking this medication until you have finished the prescribed course or the doctor tells you to stop. The doctor may also prescribe medications for pain. Follow the doctors instructions for taking these medications. If you have chronic liver or kidney disease or ever had a stomach ulcer or GI bleeding, talk with your doctor before using these medicines. Follow-up care Follow up with your health care provider. Most skin wounds heal within ten days. However, an infection may sometimes occur despite proper treatment. Therefore, check the wound daily for the signs of infection listed below. Stitches and samson should be removed within 714 days. If surgical tape closures were used, you may remove them after 10 days, if they have not fallen off by then. Notify your doctor if you notice persistent numbness or weakness in the injured extremity. (Note:A radiologist will review any X-rays that were taken. We will notify you of any new findings that may affect your care.) When to seek medical care Get prompt medical attention if any of these occur: Increasing pain in the wound Redness, swelling, or pus coming from the wound Fever of 100.4F (38C) or higher, or as directed by your health care provider If stitches or samson come apart or fall out before your next appointment If the surgical tape closures fall off within seven days, or the wound edges re-open Bleeding not controlled by direct pressure Crush Injury: Hand [No Fx] You have a CRUSH INJURY of your HAND. This causes local pain, swelling and sometimes bruising. There are no broken bones. This injury may take from a few days to a few weeks to heal. If the FINGERNAIL has been severely injured, it may fall off in 1-2 weeks. A new one will usually start to grow back within a month. Home Care: Keep your hand elevated to reduce pain and swelling. When sitting or lying down elevate your arm above the level of your heart. You can do this by placing your arm on a pillow that rests on your chest or on a pillow at your side. This is most important during the first 48 hours after injury. Apply an ice pack (ice cubes in a plastic bag, wrapped in a towel) over the injured area for 20 minutes every 1-2 hours the first day for pain relief. Continue this 3-4 times a day until the pain and swelling goes away. You may use acetaminophen (Tylenol) or ibuprofen (Motrin, Advil) to control pain, unless another pain medicine was prescribed. [ NOTE : If you have chronic liver or kidney disease or ever had a stomach ulcer or GI bleeding, talk with your doctor before using these medicines.] Keep the splint/cast dry at all times. Bathe with your splint/cast well out of the water, protected with a large plastic bag, rubber-banded at the top end. If a fiberglass cast or splint gets wet, you can dry it with a hair-dryer. Follow Up with your doctor as advised if you are not starting to improve within the next THREE days. [NOTE: If X-rays were taken, they will be reviewed by a radiologist. You will be notified of any new findings that may affect your care.] Get Prompt Medical Attention if any of the following occur: The plaster cast or splint becomes wet or soft The fiberglass cast or splint remains wet for more than 24 hours Increased tightness or pain under the cast or splint Fingers become swollen, cold, blue, numb or tingly Redness, warmth, swelling, drainage from the wound, or foul odor from a cast or splint Fever of 100.4F(38C) or higher, or as directed by your healthcare provider Fracture:Finger [Open] You have a fracture of your finger (broken finger) with a nearby cut, puncture or deep scrape. This causes local pain, swelling and bruising. Because of the open injury, there is a risk of infection in the skin and bone. Antibiotics will be used to lower the risk of infection. This injury takes about four weeks to heal. Finger injuries are often treated with a splint, cast or by taping the injured finger to the next one ("lora taping"). This protects the injured finger and holds the bone in position while it heals. More serious fractures may require surgery. If the FINGERNAIL has been severely injured, it will probably fall off in 1-2 weeks. A new fingernail will usually start to grow back within a month. Home Care: Keep your hand elevated to reduce pain and swelling. When sitting or lying down elevate your arm above the level of your heart. You can do this by placing your arm on a pillow that rests on your chest or on a pillow at your side. This is most important during the first 48 hours after injury. Apply an ice pack (ice cubes in a plastic bag, wrapped in a towel) over the injured area for 20 minutes every 1-2 hours the first day for pain relief. Continue this 3-4 times a day until the pain and swelling goes away. Keep the cast/splint completely dry at all times. Bathe with your cast/splint out of the water, protected with a large plastic bag, rubber-banded at the top end. If a fiberglass cast/splint gets wet, you can dry it with a hair-dryer. If lora tape was applied and it becomes wet or dirty, change it. You may replace it with paper, plastic or cloth tape. Cloth tape and paper tapes must be kept dry. Keep the lora tape in place for at least four weeks. You may use acetaminophen (Tylenol) or ibuprofen (Motrin, Advil) to control pain, unless another pain medicine was prescribed. [ NOTE : If you have chronic liver or kidney disease or ever had a stomach ulcer or GI bleeding, talk with your doctor before using these medicines.] Take all antibiotics until finished. Follow Up with your doctor within one week, or as advised by our staff, to be sure the bone is healing properly, . [NOTE: A radiologist will review any X-rays that were taken. We will notify you of any new findings that may affect your care.] Return Promptly or contact your doctor if any of the following occur: The plaster cast or splint becomes wet or soft The fiberglass cast or splint remains wet for more than 24 hours Pain or swelling increase Finger becomes cold, blue, numb or tingly Redness, warmth, swelling, drainage from the wound or foul odor from a cast or splint Fever of 100.4F (38C) or higher, or as directed by your healthcare provider Subungual Hematoma A subungual hematoma is blood under the nail. It occurs when the finger or toe has been hit or crushed. It causes the nail to look blue. Sometimes, the bone under the nail is also fractured and this will take longer to heal. If the bruise is small and not too painful, it will heal without treatment. If the bruise is large and painful, the blood may need to be drained. If a large area of the nail is damaged, it may be removed by your doctor. If the nail was not removed, it may separate and fall off in the next two weeks. In almost all cases, the nail will grow back from under the cuticle. This takes a few weeks to start and is complete in about 4-6 months for a fingernail and 12 months for a toenail. If the nail bed was damaged, the nail may grow back with a rough or irregular shape. Sometimes the nail may not regrow at all. Home Care: Apply an ice pack (ice cubes in a plastic bag, wrapped in a thin towel) and apply for 20 minutes every 1-2 hours the first day. Continue this 3-4 times a day until the pain and swelling goes away. If the nail was drained: Keep the nail covered with a clean Band-Aid for the next two days. There may be some oozing of blood during that time, so change the Band-Aid as needed. Soak the finger or toe once a day under warm running water. Clean any crust away with a cotton tipped applicator (Q-tip) soaked in soapy water. If the nail was removed: The nail bed (tissue under the nail) is moist, soft and sensitive. This needs to be protected from injury for the first 7-10 days until it dries out and becomes hard. Keep it covered with a dressing or Band-Aid until that time. Bandages tend to stick to a newly exposed nail bed and be hard to remove if left in place more than 24 hours. Therefore, unless you were told otherwise, change dressings every 24 hours. If necessary, soak the dressing off while holding your finger or toe under warm running water. If an x-ray showed a fracture, you should protect the finger or toe for 3-4 weeks while it is healing. If you were prescribed antibiotics to prevent infection, take them as directed until they are all gone. You may use acetaminophen (Tylenol) or ibuprofen (Motrin, Advil) to control pain, unless another medicine was prescribed. [NOTE: If you have chronic liver or kidney disease or ever had a stomach ulcer or GI bleeding, talk with your doctor before using these medicines.] Do not use ibuprofen in children under six months of age. Follow Up With Your Doctor Or This Facility As Advised. If The Nail Was Drained, There Is A Small Risk Of Infection. Watch Carefully For The Signs Listed Below. Get Prompt Medical Attention If Any Of The Following Occur: Increasing redness around the nail Increasing local pain or swelling Pus draining from the nail Fever of 100.4F (38C) or higher, or as directed by your healthcare provider Ondansetron Oral disintegrating tablet What is this medicine? ONDANSETRON (on JOYCELYN se jg) is used to treat nausea and vomiting caused by chemotherapy. It is also used to prevent or treat nausea and vomiting after surgery. How should I use this medicine? These tablets are made to dissolve in the mouth. Do not try to push the tablet through the foil backing. With dry hands, peel away the foil backing and gently remove the tablet. Place the tablet in the mouth and allow it to dissolve, then swallow. While you may take these tablets with water, it is not necessary to do so. Talk to your wire coiner regarding the use of this medicine in children. Special care may be needed. What side effects may I notice from receiving this medicine? Side effects that you should report to your doctor or health career resource specialist as soon as possible: allergic reactions like skin rash, itching or hives, swelling of the face, lips, or tongue breathing problems dizziness fast or irregular heartbeat feeling faint or lightheaded, falls fever and chills swelling of the hands and feet tightness in the chest Side effects that usually do not require medical attention (report to your doctor or health career resource specialist if they continue or are bothersome): constipation or diarrhea headache What may interact with this medicine? Do not take this medicine with any of the following medications: -apomorphine -cisapride -dofetilide -dronedarone -pimozide -thioridazine -ziprasidone This medicine may also interact with the following medications: -carbamazepine -phenytoin -rifampicin -tramadol -other medicines that prolong the QT interval (cause an abnormal heart rhythm) What if I miss a dose? If you miss a dose, take it as soon as you can. If it is almost time for your next dose, take only that dose. Do not take double or extra doses. Where should I keep my medicine? Keep out of the reach of children. Store between 2 and 30 degrees C (36 and 86 degrees F). Throw away any unused medicine after the expiration date. What should I tell my health care provider before I take this medicine? They need to know if you have any of these conditions: heart disease history of irregular heartbeat liver disease low levels of magnesium or potassium in the blood an unusual or allergic reaction to ondansetron, granisetron, other medicines, foods, dyes, or preservatives or trying to get breast-feeding What should I watch for while using this medicine? Check with your doctor or health career resource specialist as soon as you can if you have any sign of an allergic reaction. Cephalexin Monohydrate Oral tablet What is this medicine? CEPHALEXIN (sef a YEIMI in) is a cephalosporin antibiotic. It is used to treat certain kinds of bacterial infections It will not work for colds, flu, or other viral infections. How should I use this medicine? Take this medicine by mouth with a full glass of water. Follow the directions on the prescription label. This medicine can be taken with or without food. Take your medicine at regular intervals. Do not take your medicine more often than directed. Take all of your medicine as directed even if you think you are better. Do not skip doses or stop your medicine early. Talk to your wire coiner regarding the use of this medicine in children. While this drug may be prescribed for selected conditions, precautions do apply. What side effects may I notice from receiving this medicine? Side effects that you should report to your doctor or health career resource specialist as soon as possible: allergic reactions like skin rash, itching or hives, swelling of the face, lips, or tongue breathing problems pain or trouble passing urine redness, blistering, peeling or loosening of the skin, including inside the mouth severe or watery diarrhea unusually weak or tired yellowing of the eyes, skin Side effects that usually do not require medical attention (report to your doctor or health career resource specialist if they continue or are bothersome): gas or heartburn genital or anal irritation headache joint or muscle pain nausea, vomiting What may interact with this medicine? probenecid some other antibiotics What if I miss a dose? If you miss a dose, take it as soon as you can. If it is almost time for your next dose, take only that dose. Do not take double or extra doses. There should be at least 4 to 6 hours between doses. Where should I keep my medicine? Keep out of the reach of children. Store at room temperature between 59 and 86 degrees F (15 and 30 degrees C). Throw away any unused medicine after the expiration date. What should I tell my health care provider before I take this medicine? They need to know if you have any of these conditions: kidney disease stomach or intestine problems, especially colitis an unusual or allergic reaction to cephalexin, other cephalosporins, penicillins, other antibiotics, medicines, foods, dyes or preservatives or trying to get breast-feeding What should I watch for while using this medicine? Tell your doctor or health career resource specialist if your symptoms do not begin to improve in a few days. Do not treat diarrhea with over the counter products. Contact your doctor if you have diarrhea that lasts more than 2 days or if it is severe and watery. If you have diabetes, you may get a false-positive result for sugar in your urine. Check with your doctor or health career resource specialist. Hydrocodone Bitartrate, Acetaminophen Oral tablet What is this medicine? ACETAMINOPHEN; HYDROCODONE (a set a DOUG andrés fen; salima droe PAULINA done) is a pain reliever. It is used to treat mild to moderate pain. How should I use this medicine? Take this medicine by mouth. Swallow it with a full glass of water. Follow the directions on the prescription label. If the medicine upsets your stomach, take the medicine with food or milk. Do not take more than you are told to take. Talk to your wire coiner regarding the use of this medicine in children. This medicine is not approved for use in children. What side effects may I notice from receiving this medicine? Side effects that you should report to your doctor or health career resource specialist as soon as possible: allergic reactions like skin rash, itching or hives, swelling of the face, lips, or tongue breathing problems confusion feeling faint or lightheaded, falls stomach pain yellowing of the eyes or skin Side effects that usually do not require medical attention (report to your doctor or health career resource specialist if they continue or are bothersome): nausea, vomiting stomach upset What may interact with this medicine? alcohol antihistamines isoniazid medicines for depression, anxiety, or psychotic disturbances medicines for sleep muscle relaxants naltrexone narcotic medicines (opiates) for pain phenobarbital ritonavir tramadol What if I miss a dose? If you miss a dose, take it as soon as you can. If it is almost time for your next dose, take only that dose. Do not take double or extra doses. Where should I keep my medicine? Keep out of the reach of children. This medicine can be abused. Keep your medicine in a safe place to protect it from theft. Do not share this medicine with anyone. Selling or giving away this medicine is dangerous and against the law. Store at room temperature between 15 and 30 degrees C (59 and 86 degrees F). Protect from light. Keep container tightly closed. Throw away any unused medicine after the expiration date. Discard unused medicine and used packaging carefully. Pets and children can be harmed if they find used or lost packages. What should I tell my health care provider before I take this medicine? They need to know if you have any of these conditions: brain tumor Crohn's disease, inflammatory bowel disease, or ulcerative colitis drink more than 3 alcohol-containing drinks per day drug abuse or addiction head injury heart or circulation problems kidney disease or problems going to the bathroom liver disease lung disease, asthma, or breathing problems an unusual or allergic reaction to acetaminophen, hydrocodone, other opioid analgesics, other medicines, foods, dyes, or preservatives or trying to get breast-feeding What should I watch for while using this medicine? Tell your doctor or health career resource specialist if your pain does not go away, if it gets worse, or if you have new or a different type of pain. You may develop tolerance to the medicine. Tolerance means that you will need a higher dose of the medicine for pain relief. Tolerance is normal and is expected if you take the medicine for a long time. Do not suddenly stop taking your medicine because you may develop a severe reaction. Your body becomes used to the medicine. This does NOT mean you are addicted. Addiction is a behavior related to getting and using a drug for a non-medical reason. If you have pain, you have a medical reason to take pain medicine. Your doctor will tell you how much medicine to take. If your doctor wants you to stop the medicine, the dose will be slowly lowered over time to avoid any side effects. You may get drowsy or dizzy when you first start taking the medicine or change doses. Do not drive, use machinery, or do anything that may be dangerous until you know how the medicine affects you. Stand or sit up slowly. There are different types of narcotic medicines (opiates) for pain. If you take more than one type at the same time, you may have more side effects. Give your health care provider a list of all medicines you use. Your doctor will tell you how much medicine to take. Do not take more medicine than directed. Call emergency for help if you have problems breathing. The medicine will cause constipation. Try to have a bowel movement at least every 2 to 3 days. If you do not have a bowel movement for 3 days, call your doctor or health career resource specialist. Too much acetaminophen can be very dangerous. Do not take Tylenol (acetaminophen) or medicines that contain acetaminophen with this medicine. Many non-prescription medicines contain acetaminophen. Always read the labels carefully. Ibuprofen Oral tablet What is this medicine? IBUPROFEN (eye BYOO proe fen) is a non-steroidal anti-inflammatory drug (NSAID). It is used for dental pain, fever, headaches or migraines, osteoarthritis, rheumatoid arthritis, or painful monthly periods. It can also relieve minor aches and pains caused by a cold, flu, or sore throat. How should I use this medicine? Take this medicine by mouth with a glass of water. Follow the directions on the prescription label. Take this medicine with food if your stomach gets upset. Try to not lie down for at least 10 minutes after you take the medicine. Take your medicine at regular intervals. Do not take your medicine more often than directed. A special MedGuide will be given to you by the pharmacist with each prescription and refill. Be sure to read this information carefully each time. Talk to your wire coiner regarding the use of this medicine in children. Special care may be needed. What side effects may I notice from receiving this medicine? Side effects that you should report to your doctor or health career resource specialist as soon as possible: allergic reactions like skin rash, itching or hives, swelling of the face, lips, or tongue black or bloody stools, blood in the urine or in vomit breathing problems changes in vision chest pain general ill feeling or flu-like symptoms nausea or vomiting redness, blistering, peeling or loosening of the skin, including inside the mouth slurred speech or weakness on one side of the body stomach pain unexplained weight gain or swelling unusually weak or tired yellowing of eyes or skin Side effects that usually do not require medical attention (report to your doctor or health career resource specialist if they continue or are bothersome): constipation or diarrhea dizziness gas or heartburn stomach upset What may interact with this medicine? Do not take this medicine with any of the following medications: cidofovir ketorolac methotrexate pemetrexed This medicine may also interact with the following medications: alcohol aspirin diuretics lithium other drugs for inflammation like prednisone warfarin What if I miss a dose? If you miss a dose, take it as soon as you can. If it is almost time for your next dose, take only that dose. Do not take double or extra doses. Where should I keep my medicine? Keep out of the reach of children. Store at room temperature between 15 and 30 degrees C (59 and 86 degrees F). Keep container tightly closed. Throw away any unused medicine after the expiration date. What should I tell my health care provider before I take this medicine? They need to know if you have any of these conditions: asthma cigarette smoker drink more than 3 alcohol containing drinks a day heart disease or circulation problems such as heart failure or leg edema (fluid retention) high blood pressure kidney disease liver disease stomach bleeding or ulcers an unusual or allergic reaction to ibuprofen, aspirin, other NSAIDS, other medicines, foods, dyes, or preservatives or trying to get breast-feeding What should I watch for while using this medicine? Tell your doctor or healthcare professional if your symptoms do not start to get better or if they get worse. This medicine does not prevent heart attack or stroke. In fact, this medicine may increase the chance of a heart attack or stroke. The chance may increase with longer use of this medicine and in people who have heart disease. If you take aspirin to prevent heart attack or stroke, talk with your doctor or health career resource specialist. Do not take other medicines that contain aspirin, ibuprofen, or naproxen with this medicine. Side effects such as stomach upset, nausea, or ulcers may be more likely to occur. Many medicines available without a prescription should not be taken with this medicine. This medicine can cause ulcers and bleeding in the stomach and intestines at any time during treatment. Ulcers and bleeding can happen without warning symptoms and can cause . To reduce your risk, do not smoke cigarettes or drink alcohol while you are taking this medicine. You may get drowsy or dizzy. Do not drive, use machinery, or do anything that needs mental alertness until you know how this medicine affects you. Do not stand or sit up quickly, especially if you are an older patient. This reduces the risk of dizzy or fainting spells. This medicine can cause you to bleed more easily. Try to avoid damage to your teeth and gums when you brush or floss your teeth. You have been given the following additional information: Laceration, All Laceration, Extrem (Suture, Staple, Or Tape) Crush Injury, Hand/Finger Fracture, Finger (Open) Subungual Hematoma Ondansetron Oral disintegrating tablet Cephalexin Monohydrate Oral tablet Hydrocodone Bitartrate, Acetaminophen Oral tablet Ibuprofen Oral tablet Limit use of your right hand until better (limited use of Right hand until cleared by orthopedic or follow up physician). Do not work today, tomorrow. (Electronically signed by Destinee Galicia A.R.N.P. 10/03/2016 21:37)
== END 2016-10-03 20:20 | disposition home or self-care (01) ==
LOC: ED SRH 18:44
DX: S62.662B Nondisplaced fracture of distal phalanx of right middle finger, initial encounter for open fracture (principal); S61.212A Laceration without foreign body of right middle finger without damage to nail, initial encounter; S90.221A Contusion of right lesser toe(s) with damage to nail, initial encounter; W23.0XXA Caught, crushed, jammed, or pinched between moving objects, initial encounter; Y93.89 Activity, other specified; Y99.0 Civilian activity done for income or pay; Y92.89 Other specified places as the place of occurrence of the external cause